=== PATIENT | female | born 1960 | race Caucasian/White ===

== ENCOUNTER → 2022-05-09 | Outpatient (CLI) | payer OTHER ==
--- NOTE | 2022-05-10 17:00 | MM ---
Reason for Exam: Screening (asymptomatic). Last mammogram was performed 1 year(s) and 2 month(s) ago. Patient History: Menarche at age 16. First Full-Term at age 27. Postmenopausal. Currently using Hormonal Contraceptives, beginning at age 24 for 24 years, 10 months. 08/15/2011, Benign Core Biopsy on the right side. Risk Values: Yudelka 5 year model risk: 1.7%. NCI Lifetime model risk: 8.7%. Prior Study Comparison: 10/18/2018 Bilateral MG 3D screening mammo w/cad, [facility]. 01/02/2020 Bilateral MG 3D screening mammo w/cad, [facility]. 02/18/2021 Bilateral MG 3D screening mammo w/cad, [facility]. Tissue Density: The breast tissue is heterogeneously dense. This may lower the sensitivity of mammography. Findings: Analyzed By CAD. Pattern appears stable. Surgical clip is within the right breast. There is a dense nodule circumscribed nodules in the anterior mid position right breast appears more prominent than comparison. Additional evaluation with ultrasound is recommended. There may be a small nodule anterior within the right breast which may be a change. Left breast appears stable. Overall Assessment: Incomplete: need additional imaging evaluation, BI-RAD 0 Management: Diagnostic Breast Ultrasound of the right breast. A negative mammogram report should not preclude additional follow up of suspicious palpable abnormalities. Patient should continue monthly self breast exam. A clinical breast exam by your physician is recommended on an annual basis and results should be correlated with mammographic findings. Electronically signed and approved by: Ziyad Diaz D.O. Radiologis
== END | disposition home or self-care (01) ==
LOC: RADMAMWWP 07:15
PROVIDERS: ATTEND Obstetrics & Gynecology
DX: Z12.31 Encounter for screening mammogram for malignant neoplasm of breast (principal); Z78.0 Asymptomatic menopausal state
CPT/HCPCS: 77063; 77067

== ENCOUNTER → 2022-05-16 | Outpatient (CLI) | payer OTHER ==
--- NOTE | 2022-05-16 07:37 | USB ---
Reason for Exam: Additional evaluation requested from abnormal screening. Patient History: Menarche at age 16. First Full-Term at age 27. Postmenopausal. Currently using Hormonal Contraceptives, beginning at age 24 for 24 years, 10 months. 08/15/2011, Benign Core Biopsy on the right side. Risk Values: Yudelka 5 year model risk: 1.7%. NCI Lifetime model risk: 8.7%. Prior Study Comparison: 01/02/2020 Bilateral MG 3D screening mammo w/cad, [facility]. 02/18/2021 Bilateral MG 3D screening mammo w/cad, [facility]. 05/09/2022 Bilateral MG 3D screening mammo w/cad, [facility]. Findings: The lateral section of the breast of the right breast, the axilla of the right breast and the retroareolar of the right breast were scanned. A complete US of all four quadrants of the right breast and retro-areolar region were reviewed. Additional evaluation of the right axilla. No concerning solid masses identified. There is cluster of anechoic cysts demonstrated at 12 o'clock 3 cm from the nipple with one cyst measuring 0.4 x 0.3 x 0.4 cm and the other measuring 0.4 x 0.4 x 0.5 cm. This encompasses an area of approximately 1.6 cm. Additional cyst demonstrated within the right breast at 7:00 6 cm from the nipple measuring 0.5 x 0.5 x 0.4 cm. Overall Assessment: Benign, BI-RAD 2 Management: Screening Mammogram of both breasts in 1 year. A clinical breast exam by your physician is recommended on an annual basis and results should be correlated with mammographic findings. This exam should not preclude additional follow-up of suspicious palpable abnormalities. Results were given to the patient verbally at the time of exam. Electronically signed and approved by: Srini Conway D.O.
== END | disposition home or self-care (01) ==
LOC: RADUSWWP 07:00
PROVIDERS: ATTEND Obstetrics & Gynecology
DX: R92.8 Other abnormal and inconclusive findings on diagnostic imaging of breast (principal); Z78.0 Asymptomatic menopausal state

== ENCOUNTER → 2023-11-29 | Outpatient (CLI) | payer OTHER ==
--- NOTE | 2023-11-30 13:47 | MM ---
Reason for Exam: Screening (asymptomatic). Last mammogram was performed 1 year(s) and 7 month(s) ago. Patient History: Menarche at age 16. First Full-Term at age 27. Postmenopausal. Currently using Hormonal Contraceptives, beginning at age 24 for 24 years, 10 months. 08/15/2011, Benign Core Biopsy on the right side. Risk Values: Yudelka 5 year model risk: 1.8%. NCI Lifetime model risk: 8.5%. Prior Study Comparison: 01/02/2020 Bilateral MG 3D screening mammo w/cad, [facility]. 02/18/2021 Bilateral MG 3D screening mammo w/cad, [facility]. 05/09/2022 Bilateral MG 3D screening mammo w/cad, [facility]. Tissue Density: There are scattered areas of fibroglandular density. Findings: Analyzed By CAD. Right breast biopsy clip. Right breast: There is no suspicious group of microcalcifications or new suspicious mass. Left breast: There is no suspicious group of microcalcifications or new suspicious mass. Overall Assessment: Negative, BI-RAD 1 Management: Screening Mammogram of both breasts in [address] [facility] will attempt to contact patient to return for supplemental views and ultrasound if indicated. Patient should continue monthly self-breast exams. A clinical breast exam by your physician is recommended on an annual basis. This exam should not preclude additional follow-up of suspicious palpable abnormalities. Note on Yudelka scores and lifetime risk: 1. A Yudelka score greater than 3% is considered moderate risk. If this is the case, consider specialist referral to assess eligibility for a risk reducing agent. 2. If overall lifetime risk for the development of breast cancer is 20% or higher, the patient may qualify for future screening with alternating mammogram and breast MRI. Electronically signed and approved by: Surya Odell DO
== END | disposition home or self-care (01) ==
LOC: RADMAMWWP 07:31
PROVIDERS: ATTEND Obstetrics & Gynecology
DX: Z12.31 Encounter for screening mammogram for malignant neoplasm of breast (principal); Z78.0 Asymptomatic menopausal state
CPT/HCPCS: 77063; 77067